=== PATIENT | male | born 1955 | race Caucasian/White ===

== ENCOUNTER 2022-09-04 19:09 | Inpatient (IN) | payer MEDICARE, OTHER ==
[2022-09-04] VITALS (18 sets, daily range): BP systolic 157–215; BP diastolic 81–124
[~2022-09-04] VITALS: Ht 172.7 cm; Wt 101.0 kg
[~2022-09-04 19:09] MED LIST: NO; NORVASC PO
--- NOTE | 2022-09-04 19:09 | NUR ---
PT ARRIVED VIA EMS. CLOTHING SOAKED IN URINE. PT HAS ENTIRE LEFT SIDED WEAKNESS, SLURRED SPEECH AND LEFT FACIAL DROOP. PT IS ALERT AND OX4
[2022-09-04 19:52] LABS: BASO% 0.5 % (0-3); EOS% 0.2 % (0-8); IMMATURE GRANULOCYTES 0.4 % (0.0-5.0); LYMPH% 12.6 % (15-41); MEAN CELL VOLUME 94.9 fL CALC (80.0-100.0); MEAN CORPUSCULAR HGB 30.2 pG CALC (26.0-32.0); MEAN CORPUSCULAR HGB CONC 31.8 g/dL CAL (32.0-36.0); MONO% 6.8 % (2-13); NEUT# 10.15 thou/uL (1.82-7.42); NEUT% 79.5 % (42-76); RED BLOOD COUNT 6.29 mill/uL (4.70-6.10); RED CELL DISTRI WIDTH 13.5 % (11.5-15.5)
[2022-09-04 19:53] LABS: HEMATOCRIT 59.7 % (39.0-50.0)
[2022-09-04 20:04] LABS: ALKALINE PHOSPHATASE 111 u/l (38-126); BUN 37 mg/dL (8-23); BUN/CREATININE RATIO 35 (12-20 (CALC)); CPK 97 u/l (55-170); CREATININE 1.1 mg/dL (0.7-1.3); GFR FOR AFR.AMER. > 60 ML/MIN (>=60 (CALC)); GFR OTHER RACES > 60 ML/MIN (>=60 (CALC)); MAGNESIUM 2.7 mg/dL (1.6-2.3); POTASSIUM 3.9 mmol/l (3.5-5.1)
[2022-09-04 20:05] LABS: ANION GAP 20 (6-22 (CALC)); BILIRUBIN, TOTAL 1.4 mg/dL (0.2-1.3); CARBON DIOXIDE 22 mmol/l (22-30); CHLORIDE 113 mmol/l (95-108); SGOT/AST 76 u/l (19-48); SODIUM 151 mmol/l (137-146); TOTAL PROTEIN 10.4 g/dL (6.3-8.2)
[2022-09-04 20:10] LABS: INTERNATIONAL NORMALIZED RATIO 1.2 RATIO (0.7-1.3); PROTHROMBIN TIME 11.5 SECONDS (9.0-12.5)
--- NOTE | 2022-09-04 20:39 | NUR ---
PT TO RADIOLOGY
--- NOTE | 2022-09-04 21:52 | NUR ---
BP 190/94, NOTIFIED.
--- NOTE | 2022-09-04 22:02 | NUR ---
TELE NEUROLOGIST CONSULT CALLED
--- NOTE | 2022-09-04 23:56 | NUR ---
TELENEURO AT BEDSIDE.
--- NOTE | 2022-09-04 23:57 | NUR ---
FIRST ENCOUNTER WITH PT, TELENEUROLOGY AT BEDSIDE. PT NOTED TO LEFT SIDED FACIAL DROOP, WEAKNESS TO LEFT UPPER AND LOWER EXTREMITIES. VITAL SIGNS STABLE AT THIS TIME.
[2022-09-05] VITALS (22 sets, daily range): BP systolic 150–202; BP diastolic 73–107
--- NOTE | 2022-09-05 00:36 | NUR ---
PO MEDICATIONS HELD S/T FAILED SWALLOW EVALUATION
--- NOTE | 2022-09-05 02:35 | NUR ---
pt resting with eyes closed, awakens easily.
--- NOTE | 2022-09-05 02:58 | NUR ---
no change in pt status. vss. will continue to monitor.
--- NOTE | 2022-09-05 03:37 | NUR ---
PT ARRIVED TO THE MED SURG FLOOR RM 260. PT A/OX3, CALM AND COOPERATIVE, TELE MONITORING IN PROGRESS. VSS. PT DENIES SOB ON ROOMAIR, PAIN OR DISCOMFORT. LEFT SIDED FACIAL DROOPING NOTED, LEFT ARM FLACCID, LEFT LEG FLACCID. PT REPORTS HE CANNOT MOVE HIS LEFT SIDE OF HIS BODY. GARBLED SPEECH NOTED. PT HOB 45 DEGRESS. PT FAILED SWALLOW EVAL IN THE ER. RIGHT AC 20G INSERTED AND SECURED. BED ALARM ASACTIVATED. SKIN INTACT BUT GROIN IS ESCORIATED, RED IN COLOR NOTED. CONDOM CATH APPLIED TO SUCTION. FALL AND SAFETY PRECAUTIONS IN PLACE. CALL LIGHT WITHIN REACH.
--- NOTE | 2022-09-05 04:30 | NUR ---
PT IN BED RESTING, VSS. PT DOES NOT APPEAR TO BE IN DISTRESS. PT HAD INCONTINENT EPISODE. PT APPEARED TO BE UPSET AND START PULLING TELE MONITOR OFF. PT REDIRECTED.
[2022-09-05 07:32] LABS: CHOLESTEROL HDL RATIO 5.6 (<4.4 (CALC))
--- NOTE | 2022-09-05 08:00 | NUR ---
RECEIVE REPORT FROM PRINCESS SHANNON. PT ALERT AND ORIENTED X3. IT IS OBSERVED WITH DIFFICULTY TO SPEAK. PT NPO. LEFT SIDE OF THE BODY WITHOUT MOTION. HEART MONITOR ON. SR HEART RHYTHM AT THE TIME OF THIS NOTE. PT IS EDUCATED ABOUD MEDICATIONS, MRI AND NURSING CARE FOR TODAY. PT REFER UNDERSTAND. SAFETY AND FALL PRECAUTIONS IN PLACE. CALL LIGHT WITHIN IN REACH
--- NOTE | 2022-09-05 08:32 | NUR ---
THE INFORMATION FOR MRI SCREENING IS COMPLETED ACCORDING TO THE INFORMATION GAVE US BY THE SISTER OF THE PATIENT MRS. FERRELL
--- NOTE | 2022-09-05 08:35 | NUR ---
CONTACTED MASOUD MILLER IN REFERENCE TO A NUTRITION CONSULT AT 0834 HRS.
--- NOTE | 2022-09-05 16:02 | NUR ---
THE DAUGHTER OF PATIENT TOOK THE PATIENT'S WALLET HOME.
--- NOTE | 2022-09-05 16:23 | NUR ---
PATIENT STABLE AT THE TIME OF THIS NOTE. MRI DONE. RADIOLOGIST INFORMED THE PROVIDER.
--- NOTE | 2022-09-05 19:28 | NUR ---
BEDSIDE REPORT RECEIVED FROM OFF GOING NURSE. PATIENT LAYING IN BED WITH EYES CLOSED BUT EASILY AROUSED. SPEECH GARBLED. RESPIRATIONS EVEN AND UNLABORED ON OXYGEN AT 2 LPM VIA NASAL CANNULA. CALL LIGHT WITHIN REACH.
--- NOTE | 2022-09-05 19:48 | NUR ---
patient glucose level read 108 nurse aware
--- NOTE | 2022-09-05 23:00 | NUR ---
PATIENT IS ASLEEP IN BED. SAFETY MEASURES IN PLACE. RESPIRATIONS EVEN AND UNLABORED ON OXYGEN AT 2 LPM VIA NASAL CANNULA. CALL LIGHT WITHIN REACH. NEEDS ANTICIPATED.
[2022-09-06] VITALS (11 sets, daily range): BP systolic 119–220; BP diastolic 66–103
--- NOTE | 2022-09-06 03:39 | NUR ---
PATIENT ASLEEP IN BED. RESPIRATIONS EVEN AND UNLABORED ON OXYGEN AT 2 LPM VIA NASAL CANNULA. IN NO APPARENT DISTRESS. SAFETY MEASURES IN PLACE. CALL LIGHT WITHIN REACH. NEEDS ANTICIPATED BY STAFF.
[2022-09-06 05:45] LABS: BASO% 0.4 % (0-3); IMMATURE GRANULOCYTES 0.2 % (0.0-5.0); LYMPH% 17.3 % (15-41); MEAN CELL VOLUME 98.3 fL CALC (80.0-100.0); MEAN CORPUSCULAR HGB 30.9 pG CALC (26.0-32.0); MEAN CORPUSCULAR HGB CONC 31.4 g/dL CAL (32.0-36.0); MONO% 9.7 % (2-13); NEUT# 7.97 thou/uL (1.82-7.42); NEUT% 71.4 % (42-76); RED BLOOD COUNT 5.37 mill/uL (4.70-6.10)
[2022-09-06 05:53] LABS: HEMATOCRIT 52.8 % (39.0-50.0); HEMOGLOBIN 16.6 g/dl (14.0-18.0)
[2022-09-06 06:18] LABS: ALBUMIN 4.1 g/dL (3.2-5.0); ALKALINE PHOSPHATASE 85 u/l (38-126); ANION GAP 17 (6-22 (CALC)); BILIRUBIN, TOTAL 1.2 mg/dL (0.2-1.3); BUN 33 mg/dL (8-23); BUN/CREATININE RATIO 30 (12-20 (CALC)); CARBON DIOXIDE 20 mmol/l (22-30); CHLORIDE 122 mmol/l (95-108); CREATININE 1.1 mg/dL (0.7-1.3); GFR FOR AFR.AMER. > 60 ML/MIN (>=60 (CALC)); GFR OTHER RACES > 60 ML/MIN (>=60 (CALC)); MAGNESIUM 2.7 mg/dL (1.6-2.3); POTASSIUM 3.6 mmol/l (3.5-5.1); SGOT/AST 64 u/l (19-48); SODIUM 155 mmol/l (137-146)
[2022-09-06 06:22] LABS: TOTAL PROTEIN 8.2 g/dL (6.3-8.2)
--- NOTE | 2022-09-06 08:00 | NUR ---
PT IN BED WITH EYES OPENED, PT HAS GARBELED SPEECH AND UNABLE TO MAKE NEEDS KNOWS. IT IS DIFFICULT TO DETERMINE PT ORIENTATION STATUS. TELE ON WITH ALL LEADS ATTACHED. O2 @ 2LITERS VIA NC. IV SITE TO RAC CLEAN AND INTACT WITH D5 1/2 NS @ 100 ML/ HR. PT HAS PURE WICK IN PLACE AND BREIF ON FOR INCONTINENCE. SCD'S ON TO MARIA ESTHER HERRERA. PT HAS CALL LIGHT WITHIN REACH AND ALL SAFETY MEASURES IN PLACE AT THIS TIME.
[2022-09-06] MEDS ORDERED: PANTOPRAZOLE SO40 M1 PO (11:56)
[2022-09-06] MEDS ORDERED: ASPIRIN ADULT L81 M2 PO (11:56)
[2022-09-06] MEDS ORDERED: AMLODIPINE BESYL5 MG PO (11:56)
[2022-09-06] MEDS ORDERED: ATORVASTATIN CA40 MG PO (11:56)
[2022-09-06] MEDS ORDERED: PLAVIX75 MG PO (11:56)
--- NOTE | 2022-09-06 12:00 | NUR ---
PT UP IN CHAIR, AWAKE. IV SITE TO RAC CLEAN AND INTACT. PUREWICK IN PLACE AT THIS TIME. PT HAS NO CHANGE IN STATUS AT THIS TIME. CALL LIGHT WITHIN REACH AND ALL SAFETY MEASURES IN PLACE. WILL CONTINUE TO MONITOR PT.
--- NOTE | 2022-09-06 16:00 | NUR ---
PT IN BED WITH HOB UP, SPEECH THERAPY IN ROOM TO PERFORM EVAL. PT HAS NO CHANGE IN STATUS AT THIS TIME.
--- NOTE | 2022-09-06 16:51 | NUR ---
The patient had assessment orders received yesterday and the patient was seen today for assessment. Case was discussed with the attending nurse. The patient had no family present. The patient remained in the bed and had all visible lines intact and all precautions maintained. The patient was on room air, nasal cannula was in place but not in use. The patient was repositioned upright in the bed. Dry oral mucosa is noted with thick dark secretions. Oral care was provided by the GENERAL INTERNIST AND PHYSICIAN LEADER to the best possible extent. The patient's medical chart was checked and reports a prior failed bedside swallow evaluation. The patient had brain ct 09-04-22 which reports per MD of mild atrophy and age appropriate chages with chronic or periventricular white matter microvascular changes. The patient had 09-05-22 Brain MRI which reports per MD of left side weakness. 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 MD note also reports a very large area of increased signal on the right side of the huy in the vermis on the right and left. There are reports in medical record indicating patient non-compliance with medication and that he was found on the floor at home. Additional reports indicate that the patient has slurred speech, HTN, and consumes 4-5 beers a day. The patient had 09-04-22 WBC of 12.8. The patient had heart rate 61 and 02 sat 92% at the onset and heart rate 63 and 02 sat 93% at the end of the visit. The patient was initially slower to arouse found with eyes closed. He was easily stimulated with verbal and tactile stimulation. The patient was given stimulation from the anatomical right and left sides. The patient had hand grasp on the right hand, none on the left hand. The patient had reduction to spontaneous motor limb movement. There was slowed and inconsistent ability to visually track to a moving ADL object on command. He does attempt visual object ID on cue and to name object color. There is considerable reduction to speech intelligibility. The patient presents with articulation slurring and distortion consistent with dysarthria. There is reduction to the kinesthetic shaping and postural awareness of the articulators. There is reduction to oral agility. The patient has reduction to articulatory precision. When asked to provide a counting sequence, there is a gradual reduction to intelligibility, volume, and breath support. There is hoarse and weakened phonation noted. The patient has dentition. There was weakened velar elevation on phonation. There was reduction to bilateral gag reflex testing. He did have anterior lingual protrusion on cue, as well as lingual tip to alveolar ridge contact which was slowed. He had lingual lateralization on command, stronger to the right side vs the left side. There was weakness to labial pursing noted. There was no labial retraction on the left side. There was labial retraction on the right side. The patient did attempt to read large print ADL word. The patient had reduction to speech intelligibilty at the word and short phrase level. There were audible wet breath sounds without wet dyshonia in area of larynx. He was noted to have a reduced visible frequency of spontaneous saliva swallows. There was weakness to cough and throat clear on command. The patient had saliva swallow weakness and delay perceived as per palpable assessment of the areas of the mandible, hyoid bone, and thyroid cartilage. There was weakness to labial seal and left side anterior loss when given three trials of one small ice chip via tsp. There was slowed oral prep and transit perceived and palpable swallow weakness with one swallow per ice chip. Wet and distorted breath sounds in area of larynx increased without a cough. Audible bolus loss to throat perceived with a tsp of water thin liquid, left side anterior oral loss. Weak labial seal on tsp noted, wet breath sounds and distorted breath sounds in area of larynx continued. Palpable swallow appeared weakened. He was unable to self feed, but was able to perform finger point to nose with the right hand. He was given a small cup sip of thin liquid water. There weakness to labial seal on cup, left side anterior oral loss, audible bolus spillage to throat was perceived. He had 3-4 multiple, weakened repeat swallows spontaneously. There was increased wet breath sounds in area of larynx, followed by throat clearing, and wet/weak reflexive cough with mild increased work of breathing. Cough had mild congested quality. No additional PO trials were given. Findings discussed with the attending nurse. There was no overt distress. No eye glasses or hearing aids. Inconsistent wh question response. FINDINGS: The patient has dysphagia and increased risk for aspiration. Oral feeding is not presently suggested. At the time of this visit, he is not yet ready for an instrumental swallow assessment. He will need to improve endurance and stamina before that can be done. Depending on plans of patient, family, and medical team, consideration for temporary non-oral intake may need to be considered. The patient will need follow up at the bedside for dysphagia re-assessment in the next few days. Goals will be to improve oral-pharyngeal swallow function. The patient has dysarthria as well as cognitive communication deficits. He will need therapy to improve articulation function. He will need ongoing cognitive re-assessment. Staff should anticipate patient needs. If articulation deficits continue to impact ADL needs being made verbally and his visual ability is sufficient, he might benefit from temporary communication board. Staff should maintain good oral hygiene for this patient and monitor his temperature, lung, diet, and weight status. Staff should anticipate patient's ADL needs. He did not grasp pen for writing task. Time with patient was 410 pm to 450 pm. All findings d/w the attending nurse. GENERAL INTERNIST AND PHYSICIAN LEADER explained scope of practice and purpose of the visit to the patient. Speech follow up is suggested. Gonzalo Herrera [facility]-GENERAL INTERNIST AND PHYSICIAN LEADER.D BCS-S 09-06-22
--- NOTE | 2022-09-06 17:48 | NUR ---
SPEECH NOTE ADDENDUM 09-06-22: There was no intra-oral bolus retention during visit. Gonzalo Herrera CCC-AIRCRAFT ENGINEER.D ANN-S
--- NOTE | 2022-09-06 20:30 | NUR ---
RECEIVED REPORT FROM BERNARDO CHAVEZ. PT RESTING ON BED SEMI FOWLERS POSITION; EYES OPEN, PT UNABLE TO SAY NAME OR . EVEN AND UNLABORED RESPIRATIONS ON BRYSON. TELEMETRY IN PLACE. IV SITE HEALTHY AND PATENT. HYPOACTIVE BOWEL SOUNDS X4 QUADRANTS. PT REMAINS NPO PER MED ORDERS. SCD'S IN PLACE. LEFT SIDE DEFICIT NOTED. PUREWICK IN PLACE. PT'S BP 193/82; DR POWERS NOTIFIED, ORDERED RECEIVED TO DECREASED IV FLUIDS TO 30 MLS/HR, AND BS CHECK. SAFETY PRECAUTIONS IN PLACE WITH CALL LIGHT IN REACH.
--- NOTE | 2022-09-06 21:20 | NUR ---
PT'S BP 193/82; LABETALOL IV ADMINISTERED BY MIRTHA VILLANUEVA/DRILL INSTRUCTOR.
[2022-09-06 22:38] LABS: URINE BILIRUBIN - DIPSTICK NEGATIVE (NEGATIVE); URINE BLOOD DIPSTICK NEGATIVE (NEGATIVE); URINE COLOR YELLOW; URINE GLUCOSE - DIPSTICK NEGATIVE (NEGATIVE); URINE KETONE NEGATIVE (NEGATIVE); URINE LEUK ESTERASE NEGATIVE (NEGATIVE); URINE PROTEIN - DIPSTICK 30 mg/dL (NEG-TRACE); URINE SPECIFIC GRAVITY 1.025
[2022-09-06 22:51] LABS: URINE NITRITE - DIPSTICK POSITIVE (Negative)
[2022-09-06 22:57] LABS: URINE BACTERIA MODERATE hpf; URINE RBC 0-2 RBC/hpf (0-5)
[2022-09-07] VITALS (10 sets, daily range): BP systolic 153–217; BP diastolic 82–110
--- NOTE | 2022-09-07 | NUR ---
PT RESTING ON BED WITH EYES CLOSED. NO DISTRESS OR PAIN NOTED. IV SITE INFUSING FLUIDS PER ORDER. BED ALARM ACTIVE AND SAFETY PRECAUTIONS IN PLACE.
--- NOTE | 2022-09-07 04:00 | NUR ---
PT RESTING ON BED WITH EYES CLOSED. NO DISTRESS OR PAIN NOTED. FIXED TELEMETRY LEADS AT THIS TIME. IV SITE INFUSING FLUIDS PER ORDER. SAFETY PRECAUTIONS IN PLACE WITH CALL LIGHT IN REACH.
[2022-09-07 04:33] LABS: HEMATOCRIT 52.7 % (39.0-50.0); HEMOGLOBIN 16.3 g/dl (14.0-18.0); MEAN CELL VOLUME 97.6 fL CALC (80.0-100.0); MEAN CORPUSCULAR HGB 30.2 pG CALC (26.0-32.0); MEAN CORPUSCULAR HGB CONC 30.9 g/dL CAL (32.0-36.0); RED BLOOD COUNT 5.4 mill/uL (4.70-6.10); RED CELL DISTRI WIDTH 14.1 % (11.5-15.5)
[2022-09-07 04:41] LABS: ALBUMIN 4.1 g/dL (3.2-5.0); ALKALINE PHOSPHATASE 90 u/l (38-126); ANION GAP 13 (6-22 (CALC)); BUN 24 mg/dL (8-23); BUN/CREATININE RATIO 22 (12-20 (CALC)); CARBON DIOXIDE 23 mmol/l (22-30); CHLORIDE 123 mmol/l (95-108); CREATININE 1.1 mg/dL (0.7-1.3); GFR FOR AFR.AMER. > 60 ML/MIN (>=60 (CALC)); GFR OTHER RACES > 60 ML/MIN (>=60 (CALC)); MAGNESIUM 2.5 mg/dL (1.6-2.3); POTASSIUM 3.3 mmol/l (3.5-5.1); SGOT/AST 68 u/l (19-48); SODIUM 155 mmol/l (137-146); TOTAL PROTEIN 7.9 g/dL (6.3-8.2)
[2022-09-07 04:45] LABS: BILIRUBIN, TOTAL 1.8 mg/dL (0.2-1.3)
--- NOTE | 2022-09-07 06:47 | NUR ---
PT'S BP 217/93; APRESOLINE IV ADMINISTERED BY MIRTHA CACERES.
--- NOTE | 2022-09-07 07:00 | NUR ---
RECEIVE REPORT FROM MARYLOU CHANG.
--- NOTE | 2022-09-07 08:00 | NUR ---
PT PATIENT ASLEEP. IT IS OBSERVED WITH DIFFICULTY TO REPLY. PT NPO. LEFT SIDE OF THE BODY WITHOUT MOTION. HEART MONITOR ON. SR HEART RHYTHM AT THE TIME OF THIS NOTE. SAFETY AND FALL PRECAUTIONS IN PLACE. CALL LIGHT WITHIN IN REACH
--- NOTE | 2022-09-07 11:06 | NUR ---
Treatment held this am per MARKET RESEARCHER pt to have CT done.
--- NOTE | 2022-09-07 12:16 | NUR ---
PATIENT STABLE AT THE TIME. RESTING IN BED CONFORTABLE. SAFETY AND FALL PRECAUTIONS IN PLACE. CALL LIGHT WITHIN IN REACH.
--- NOTE | 2022-09-07 13:03 | NUR ---
PROBLEMS WITH [employer] NOT ALLOWING ME TO COMPLETE THE ADMINISTRATION OF ASA SUPOSITORY. BUT IF IT WAS ADMINISTERED ACCORDING TO MEDICAL ORDER.
--- NOTE | 2022-09-07 16:52 | NUR ---
Neuro consult is done. He need to continue Speech therapy/dysphagia screen Physical therapy/Occupational therapy Speech therapy if failed dysphagia screenPhysical therapy/Occupational therapy
--- NOTE | 2022-09-07 21:45 | NUR ---
RECEIVED BEDSIDE REPORT AT START OF SHIFT.PT LYING SUPINE IN BED WITH hob ELEVATED. DOES NOT RESPOND TO NAME OR STIMULI. PUREWICK INTACT SCDS ON. IV FLUIDS ORDERED.
[2022-09-08] VITALS (113 sets, daily range): BP systolic 130–200; BP diastolic 71–114
--- NOTE | 2022-09-08 06:36 | NUR ---
PT TURNED AND REPOSITIONED Q 2HOURS. PERICARE AND BEDBATH GIVEN. GROIN AREA AND BUTTOCKS ARE PINK. BARRIER CREAM APPLIED. NON RESPONSIVE TO ALL CARE AND STIMULI. SCDS ON. IV FLUIDS INFUSING ORDERED, REMAINS NPO AT THIS TIME. LABETOLOL GIVEN IV X 2 THIS SHIFT FOR BP OVER 200 WITH GOOD EFFECT. PUREWICK CHANGED. OUTPUT 250CC FRANCOIS COLORED URINE. REMAINS ON 02 VIA NC. SKIN IS WARM AND DRY. COLOR IS PINK.
[2022-09-08 06:46] LABS: BASO% 0.4 % (0-3); EOS% 0.1 % (0-8); HEMATOCRIT 54.8 % (39.0-50.0); HEMOGLOBIN 17.4 g/dl (14.0-18.0); IMMATURE GRANULOCYTES 0.3 % (0.0-5.0); LYMPH% 13.9 % (15-41); MEAN CELL VOLUME 97.7 fL CALC (80.0-100.0); MEAN CORPUSCULAR HGB CONC 31.8 g/dL CAL (32.0-36.0); NEUT# 10.83 thou/uL (1.82-7.42); NEUT% 75.3 % (42-76); RED BLOOD COUNT 5.61 mill/uL (4.70-6.10); RED CELL DISTRI WIDTH 14.4 % (11.5-15.5)
[2022-09-08 07:05] LABS: ALBUMIN 4.1 g/dL (3.2-5.0); CREATININE 1.5 mg/dL (0.7-1.3); POTASSIUM 3.9 mmol/l (3.5-5.1); TOTAL PROTEIN 8.4 g/dL (6.3-8.2)
[2022-09-08 07:08] LABS: BILIRUBIN, TOTAL 3.4 mg/dL (0.2-1.3)
--- NOTE | 2022-09-08 07:30 | NUR ---
RECIEVED BEDSIDE REPORT PATIENT ON 3L OXYGEN, IV INTACT, SCD IN PLACE, PATIENT APPEARS COMFORTABLE, PATIENT SAFETY PRECAUTIONS IN PLACE.
--- NOTE | 2022-09-08 09:00 | NUR ---
UNABLE TO DO NIH PATIENT, NO S/S OF DISTRESS, PATIENT SAFETY PRECAUTIONS IN PLACE.
--- NOTE | 2022-09-08 09:27 | NUR ---
Pt repositioned onto his R side with the help of a NT and SEED LABORATORY TECHNICIAN.
--- NOTE | 2022-09-08 11:30 | NUR ---
PATIENT GIVEN 10MG LABETOLOL FOR ELEVATED BP, PERIODS OF APNEA NOTED, PROVIDER NOTIFED, PATIENT TRANSFERED TO ICU.
--- NOTE | 2022-09-08 11:37 | NUR ---
Patient arrived to the unit via stretcher accompained by staff. Patient's breathing is labored with periods of apnea. Patient unable to follow commands or respond to speech. Patient unable to hold eyes open. R sided facial droop noted. NIH scoare of 19. Abdomen distended but soft. Peripheral pulses strong, pedal pulses weak. Patient is hypertensive. Pharmacy contacted for cardene drip. Removed 2 maxi pads soaked with urine. Male catheter noted to be intact. B/L SCDs noted. Patient is warm and moist, afebrile, b/l arm bruises noted. Suctioned thick, grayish phlegm from patients mouth. Upper lobe crackles heard anteriorly. Pupils equal and reactive to light. Patient responds to pain on L side. Capillary refill > 3 secs. Bed in low position. Will continue to monitor.
--- NOTE | 2022-09-08 12:05 | NUR ---
Oral care provided. Patient repositioned supine.
--- NOTE | 2022-09-08 13:30 | NUR ---
REPORT GIVEN TO ICU NURSE.
--- NOTE | 2022-09-08 14:00 | NUR ---
Patient status unchanged. NAD noted. Will continue to monitor/.
--- NOTE | 2022-09-08 16:10 | NUR ---
Patient lying in bed. Patient SR on the monitor. Patient not responding to commands or speech. No urine output noted. Will continue to monitor.
--- NOTE | 2022-09-08 16:28 | NUR ---
Patient status unchanged. Patient is SR on the monitor. Diastolic BP slightly elevated. Will continue to monitor.
--- NOTE | 2022-09-08 18:46 | NUR ---
CALLED [facility] FOR PLACEMENT OF AIR MATTRESS. SPOKE TO ADRIENNE AND WAS GIVEN CONFIRMATION NUMBER [id number].
--- NOTE | 2022-09-08 18:48 | NUR ---
No changes at this time. NAD. SR on the monitor. BP WNL.
--- NOTE | 2022-09-08 20:00 | NUR ---
REPORT RECEIVED FROM OFF GOING NURSE. BLOOD PRESSURE NOTED STAABLE AT THIS TIME. PATIENT NOTED LYING IN BED RESTING COMFORTABLY. HE IS NONE RESPONSIVE TO VOICE OR PAIN STIMULI. CRACKLES NOTED IN LUNGS. BOWEL SOUNDS HYPERACTIVE IN ALL QUADRANTS. ABD NOTED SOFT AND DISTENDED. REDNESS NOTED TO BUTTOCK AND KANIKA AREA. PATIENT HAS ON CONDOM CATH DRAINING DARK FRANCOIS URINE. NO EDEMA NOTED. STRONG PEDAL PULSES NOTED TO BLE. PATIENT REPOSITIONED. BED LOCKED, AND IN LOW POSITION. NO SIGNS OR SYMPTOMS OF ACUTE DISTRESS NOTED AT THIS TIME. WILL CONTINUE TO MONITOR.
--- NOTE | 2022-09-08 22:00 | NUR ---
PATIENT LYING IN BED RESTING COMFORTABLY WITH NO ACUTE DISTRESS NOTED. BED LOCKED, IN LOW POSITION, CALL LIGHT WITHIN REACH.
[2022-09-09] VITALS (42 sets, daily range): BP systolic 106–185; BP diastolic 56–123
--- NOTE | 2022-09-09 | NUR ---
PATIENT LYING IN BED WITH NO ACUTE DISTRESS NOTED. BED LOCKED, IN LOW POSITION, CALL LIGHT WITHIN REACH. WILL CONTINUE TO MONITOR.
--- NOTE | 2022-09-09 02:00 | NUR ---
PATIENT LYING IN BED RESTING COMFORTABLY WITH NO ACUTE DISTRESS NOTED. WILL CONTINUE TO MONITOR.
--- NOTE | 2022-09-09 04:00 | NUR ---
PATIENT LYING IN BED RESTING COMFORTABLY WITH NO ACUTE DISTRESS NOTED. BED LOCKED, IN LOW POSITION, CALL LIGHT WITHIN REACH. WILL CONTINUE TO MONITOR.
[2022-09-09 05:49] LABS: HEMATOCRIT 58.4 % (39.0-50.0); HEMOGLOBIN 17.9 g/dl (14.0-18.0); MEAN CELL VOLUME 100.7 fL CALC (80.0-100.0); MEAN CORPUSCULAR HGB 30.9 pG CALC (26.0-32.0); MEAN CORPUSCULAR HGB CONC 30.7 g/dL CAL (32.0-36.0); RED BLOOD COUNT 5.8 mill/uL (4.70-6.10); RED CELL DISTRI WIDTH 14.5 % (11.5-15.5)
[2022-09-09 06:31] LABS: ALBUMIN 3.9 g/dL (3.2-5.0); BILIRUBIN, TOTAL 3.8 mg/dL (0.2-1.3); CREATININE 1.5 mg/dL (0.7-1.3); MAGNESIUM 2.7 mg/dL (1.6-2.3); TOTAL PROTEIN 7.8 g/dL (6.3-8.2)
[2022-09-09 06:34] LABS: POTASSIUM 4.7 mmol/l (3.5-5.1)
--- NOTE | 2022-09-09 07:06 | NUR ---
REPORT GIVEN TO ONCOMING NURSE.
--- NOTE | 2022-09-09 08:36 | NUR ---
Patient repositioned to R side. Patient is SR on the monitor. Breathing even and unlabored. Crackles heard in upper lobes, diminished in lower lobes. Patient is warm and moist, but afebrile. Strong peripheral/pedal pulses noted. Patient soiled. Carey urine noted. Redness noted in buttocks/rivas area. Bruising noted on buttocks area. Patient noted to have old pressure injury on L buttocks. B/l burises noted on patient's arms. No s/s of distress noted at this time. Bed in low position. Will continue to monitor.
--- NOTE | 2022-09-09 10:19 | NUR ---
Patient repositioned to L side. Miller placed as ordered. Patient responds to painful stimuli. No apparent distress noted. Bed in low position. Will continue to monitor.
--- NOTE | 2022-09-09 11:20 | NUR ---
Patient went from SR to afib RVR approximately 1045. EKG ordered to confirm afib. Dr. Valadez notified of change.
--- NOTE | 2022-09-09 13:03 | NUR ---
This pattern chart writer spoke with patient's sister, Garland Payne, following a phone call placed by odette huynh. Patient's sister provided update of patient's status and made aware of patient's "poor outcome" due to "location of stroke" as stated by the neurologist. Agreed to hospice consult and requested an order be made. Sister requested she be contacted with any new updates.
--- NOTE | 2022-09-09 14:04 | NUR ---
Patient repositioned to R side. NAD noted. Bed in low position. Will continue to monitor.
--- NOTE | 2022-09-09 16:37 | NUR ---
Patient repositioned supine. No s/s of distress. No apparent changes. Will continue to monitor.
--- NOTE | 2022-09-09 19:24 | NUR ---
Justine called to inquire about patient's status. Stated they would f/u with patient's sister as soon as possible.
--- NOTE | 2022-09-09 21:52 | NUR ---
PT IN BED UNRESPONSIVE WITH NO GAG REFLEX AND PUPILS ARE PIN POINT AND FIXED. PT IS BEING TURNED Q2 HRS AND HEELS ARE FLOATED. WILL CONTINUE TO MONITOR
--- NOTE | 2022-09-09 22:27 | NUR ---
PT TEMP 100.8 AND HR 130'S-140'S. OBTAINED ORDER FORM IV TYLENOL AND 5MG LOPRESSOR. WILL CONTINUE TO MONITOR.
[2022-09-10] VITALS (19 sets, daily range): BP systolic 103–151; BP diastolic 67–100
--- NOTE | 2022-09-10 01:07 | NUR ---
PT HR HAS DECREASED TO ONE TEENS-120'S AND TEMP IS NOW 99.1. WILL CONTINUE TO MONITOR.
--- NOTE | 2022-09-10 05:33 | NUR ---
PT LAYING IN BED WITH NAD AND VSS. PT IS STILL UNRESPONSIVE. PT HAS HAD A COMPLETE BED BATH. PT CONDITION STILL THE SAME. WILL CONTINUE TO MONITOR
[2022-09-10 06:01] LABS: BASO% 0.4 % (0-3); EOS% 0.1 % (0-8); IMMATURE GRANULOCYTES 0.5 % (0.0-5.0); LYMPH% 18.7 % (15-41); MEAN CELL VOLUME 103.1 fL CALC (80.0-100.0); MEAN CORPUSCULAR HGB 30.7 pG CALC (26.0-32.0); MEAN CORPUSCULAR HGB CONC 29.8 g/dL CAL (32.0-36.0); MONO% 10.8 % (2-13); NEUT# 11.79 thou/uL (1.82-7.42); NEUT% 69.5 % (42-76); RED BLOOD COUNT 5.87 mill/uL (4.70-6.10); RED CELL DISTRI WIDTH 14.6 % (11.5-15.5)
[2022-09-10 06:12] LABS: ALBUMIN 3.4 g/dL (3.2-5.0); BILIRUBIN, TOTAL 3.7 mg/dL (0.2-1.3); CREATININE 1.8 mg/dL (0.7-1.3); POTASSIUM 3.9 mmol/l (3.5-5.1); TOTAL PROTEIN 7.1 g/dL (6.3-8.2)
[2022-09-10 06:20] LABS: HEMATOCRIT 60.5 % (39.0-50.0)
--- NOTE | 2022-09-10 08:00 | NUR ---
REPORT RECIEVED FROM NIGHT RN. PUPILS PINPOINT AND NON-REACTIVE. PT IS NON-RESPONSIVE TO VERBAL OR PAINFUL STIMULI. LUNG SOUNDS RHONCHI THROUGHOUT. PT ON 6LNC. HEART RHYTHM IRREGULAR; PT IS IN AFIB. BOWEL SOUNDS ABSENT. VOIDING BY JAIMES CATHETER. PULSES STRONG UPPER EXTREMETIES, WEAK LOWER EXTREMETIES. MOTTLING NOTED ON FEET/ LEGS. PT EXTREMETIES ARE COLD TO TOUCH; PT HAS AXILLARY TEMPERATURE 102 DEGREES. MOUTH CARE PROVIDED.
--- NOTE | 2022-09-10 10:00 | NUR ---
PT REPOSITIONED IN BED AND MOUTHCARE PROVIDED. ORDERS RECIEVED FROM DR. DC FOR PRN LOPRESSOR. MEDICATION GIVEN PER ORDERS. PT RESPONDED WELL. VSS AT THIS TIME.
--- NOTE | 2022-09-10 12:01 | NUR ---
PT REPOSITIONED IN BED. ORAL SUCTIONING PERFORMED. NEB TREATMENT AND DEEP SUCTION DONE BY RT. PT REPOSITIONED. VSS AT THIS TIME; PT DOES HAVE TEMPERATURE; AWAITING ORDERS FROM .
--- NOTE | 2022-09-10 12:36 | NUR ---
SPOKE WITH ED HOSPICE NURSE TO GET UPDAT DEREK PT STATUS. HOSPICE NURSE STATED THAT THEY HAD A MEETING WITH PT'S FAMILY MEMBER THIS AFTERNOON.
--- NOTE | 2022-09-10 12:48 | NUR ---
[facility] NURSE AT BEDSIDE TO ASSESS PATIENT. FAMILY AT BEDSIDE TO SPEAK WITH HOSPICE NURSE.
--- NOTE | 2022-09-10 14:00 | NUR ---
MOUTH CARE AND ORAL SUCTIONING PERFORMED. PT CONTINUES TO HAVE TEMPERATURE, COOL PACKS APPLIED. MONITORING CLOSELY. PT REPOSITIONED.
--- NOTE | 2022-09-10 14:48 | NUR ---
PHONE CALL PLACED TO DR. CHEMA RESTREPO FOR PT DISCHARGE TO HOSPICE HOUSE. COB SAWYER NOTIFIED.
--- NOTE | 2022-09-10 15:20 | NUR ---
REPORT GIVEN TO POSITIVE TRANSPORT. PT IN STABLE CONDITION UPON TIME OF TRANSFER. PT HAD NO BELONGINGS PRESENT.
--- NOTE | 2022-09-10 15:33 | NUR ---
CONTACTED KATHY TO SCHEDULE THE PICK-UP OF THE AIR MATTRESS ASSIGNED TO THIS PATIENT. I SPOKE WITH JAVIER AT 1527 HRS. CONFIRMATON # [id number].
== END 2022-09-10 15:20 | disposition hospice, inpatient (51) | DRG 65 ==
LOC: ED 19:09 → MS2 09-05 00:28 → ED-I 09-05 00:28 → MS2 09-05 01:47 → ICU 09-08 11:46
PROVIDERS: Emergency Medicine; Internal Medicine; Nurse Practitioner Family; ADMIT Internal Medicine; ATTEND Internal Medicine
PROC: 0T9B70Z Drainage of Bladder with Drainage Device, Via Natural or Artificial Opening (ICD-10-PCS; principal; 2022-09-09)
DX: I63.531 Cerebral infarction due to unspecified occlusion or stenosis of right posterior cerebral artery (principal); E87.0 Hyperosmolality and hypernatremia; G81.94 Hemiplegia, unspecified affecting left nondominant side; I16.9 Hypertensive crisis, unspecified; N17.9 Acute kidney failure, unspecified; I63.81 Other cerebral infarction due to occlusion or stenosis of small artery; R29.810 Facial weakness; R47.1 Dysarthria and anarthria; R13.10 Dysphagia, unspecified; R29.710 NIHSS score 10; I65.21 Occlusion and stenosis of right carotid artery; I48.91 Unspecified atrial fibrillation; E86.9 Volume depletion, unspecified; R09.02 Hypoxemia; I10 Essential (primary) hypertension; T46.5X6A Underdosing of other antihypertensive drugs, initial encounter; Z91.128 Patient's intentional underdosing of medication regimen for other reason; F17.200 Nicotine dependence, unspecified, uncomplicated; Z20.822 Contact with and (suspected) exposure to COVID-19; Z66 Do not resuscitate; Z51.5 Encounter for palliative care
CPT/HCPCS: J0131; J1650; Q9967; S0164